=== PATIENT | male | born 1975 | race Caucasian/White ===

== ENCOUNTER 2020-03-14 08:57 | Emergency (ER) | payer BC ==
[~2020-03-14] VITALS: Ht 180.3 cm; Wt 68.0 kg
[2020-03-14] MEDS ORDERED: PHENY100ER PO (09:10)
[2020-03-14] MEDS ORDERED: Crutch1 EACH XX (10:14)
[2020-03-14] MEDS ORDERED: HYDR1TAB94 PO (10:14)
== END 2020-03-14 10:57 | disposition home or self-care (01) ==
LOC: ER 08:57
DX: S82.52XA Displaced fracture of medial malleolus of left tibia, initial encounter for closed fracture (principal); G40.909 Epilepsy, unspecified, not intractable, without status epilepticus; F17.200 Nicotine dependence, unspecified, uncomplicated; Z79.899 Other long term (current) drug therapy; X50.1XXA Overexertion from prolonged static or awkward postures, initial encounter
CPT/HCPCS: 29515; 73610; 99283-25; A9270

== ENCOUNTER 2020-12-13 10:15 | Emergency (ER) | payer BC ==
[~2020-12-13] VITALS: Ht 180.3 cm; Wt 68.0 kg
[~2020-12-13 10:15] MED LIST: Crutch1 EACH XX; HYDR1TAB94 PO; PHENY100ER PO
[2020-12-13 11:36] LABS: Dilantin (Phenytoin), Total 6.7 ug/mL (10.0-20.0)
== END 2020-12-13 13:16 | disposition home or self-care (01) ==
LOC: ER 10:15
PROVIDERS: Physician Assistant
DX: S02.19XA Other fracture of base of skull, initial encounter for closed fracture (principal); S22.41XA Multiple fractures of ribs, right side, initial encounter for closed fracture; S01.01XD Laceration without foreign body of scalp, subsequent encounter; X58.XXXA Exposure to other specified factors, initial encounter; G40.909 Epilepsy, unspecified, not intractable, without status epilepticus; F17.200 Nicotine dependence, unspecified, uncomplicated
CPT/HCPCS: 36415; 70480; 71101; 80185; 99283-25

== ENCOUNTER → 2025-02-23 | Outpatient (CLI) | payer SELFPAY | LOC: LAB 08:07 → LAB SHORT 08:07 | DX: C44.41 Basal cell carcinoma of skin of scalp and neck (principal); D49.2 Neoplasm of unspecified behavior of bone, soft tissue, and skin | CPT/HCPCS: 88305 ==